=== PATIENT | male | born 2000 | race Two or more races ===

== ENCOUNTER 2018-02-16 19:33 | Emergency (ER) | payer SELFPAY ==
--- NOTE | 2018-02-16 20:30 | EDM.PDOCBH ---
ED HPI GENERAL MEDICAL PROBLEM - General Chief Complaint: Behavioral/Psych Stated Complaint: MENTAL HEALTH EVALUATION Time Seen by Provider: 02/16/18 20:11 Source of Information: Reports: Patient History Limitations: Reports: No Limitations - History of Present Illness INITIAL COMMENTS - FREE TEXT/NARRATIVE: 17-year-old male presents for a mental health evaluation. Patient is very tangential and has thoughts of grandeur, distal to obtain a complete history from him. We've never seen him in the ER before. Patient reports that he is from [place]. He came to [place] for work. He has been staying with his brother. Apparently there was some argument between him and his brother kaushal. The police were called and instructed him to come to the ED for a psychiatric evaluation. Apparently the please brought him to the ER, but they do not enter with them. Patient reports that he uses marijuana. No alcohol. No other drugs. Patient has paranoid thoughts. He states that he feels his family is out to get him. He also reports that he feels that he's been troubled by his family. He denies any suicidal thoughts or plan. He denies any homicidal thoughts or plan. He talks extensively about getting a monthly stipend from someone due to trauma with his . He states that the money has caused significant problems in his family. He feels that the way he carries himself causes problems with his family. He states that his family and his brother playing "mind games "with him. He denies any visual hallucinations or auditory hallucinations. He states he has never been diagnosed with any psychiatric illness. He is not on any medications and never has been. This never seen a psychiatrist. No medical concerns. Denies any fevers, chills, nausea or vomiting. - Related Data Allergies Allergy/AdvReac Type Severity Reaction Status Date / Time No Known Allergies Allergy Verified 02/16/18 19:45 Home Meds: Home Meds . [No Known Home Meds] 02/16/18 [History] Past Medical History - Past Health History Medical/Surgical History: Denies Medical/Surgical History Other Psychiatric History: hyperactive Social & Family History - Family History Family Medical History: Noncontributory - Tobacco Use Smoking Status *Q: Former Smoker Used Tobacco, but Quit: No - Caffeine Use Caffeine Use: Reports: None - Recreational Drug Use Recreational Drug Use: Yes Recreational Drug Type: Reports: Marijuana/Hashish Recreational Drug Use Frequency: Binges ED ROS GENERAL - Review of Systems Review Of Systems: See Below Constitutional: Denies: Fever, Chills GI/Abdominal: Denies: Nausea, Vomiting Psychiatric: Denies: Anxiety, Depression, Hallucinations, Homicidal Ideation, Suicidal Ideation ED EXAM, BEHAVIORAL HEALTH - Physical Exam Exam: See Below Exam Limited By: No Limitations General Appearance: Alert, WD/WN, No Apparent Distress Respiratory/Chest: No Respiratory Distress, Lungs Clear, Normal Breath Sounds Cardiovascular: Normal Peripheral Pulses, Regular Rate, Rhythm, No Murmur Neurological: Alert, Normal Mood/Affect, Normal Cognition, Normal Gait Psychiatric: Alert, Normal Affect, Normal Cognition, Normal Mood, Tangential Thoughts, Grandiose Thoughts, Paranoid Thoughts. No: Depressed Mood, Flat Affect, Agitated, Non-Communicative, Poor Eye Contact, Homicidal Thoughts, Suicidal Plan, Suicidal Thoughts, Auditory Hallucinations, Visual Hallucinations , Threatening Behavior Skin Exam: Warm, Dry, Normal color COURSE, BEHAVIORAL HEALTH COMP - Course Vital Signs: Last Vital Signs Temp 36.9 C 02/16/18 19:35 Pulse 86 02/16/18 19:35 Resp 18 02/16/18 19:35 BP 132/99 H 02/16/18 19:35 Pulse Ox 97 02/16/18 19:35 Orders, Labs, Meds: Laboratory Tests 02/16/18 Range/Units 19:50 Urine Opiates Screen Negative (NEGATIVE) Ur Buprenorphine Scrn Negative (NEGATIVE) Ur Oxycodone Screen Negative (NEGATIVE) Urine Methadone Screen Negative (NEGATIVE) Ur Propoxyphene Screen Negative (NEGATIVE) Ur Barbiturates Screen Negative (NEGATIVE) Ur Tricyclics Screen Negative (NEGATIVE) Ur Phencyclidine Scrn Negative (NEGATIVE) Ur Amphetamine Screen Negative (NEGATIVE) U Methamphetamines Scrn Negative (NEGATIVE) U Benzodiazepines Scrn Negative (NEGATIVE) U Cocaine Metab Screen Negative (NEGATIVE) U Marijuana (THC) Screen Negative (NEGATIVE) Re-Assessment/Re-Exam: 22:10 Spoke with [facility]. Initially did not feel that he is a candidate for the [facility] bed. I spoke with Netta again. She will come and see the patient to see if he is indeed a candidate for the [facility] bed. Patient is not exhibiting threatening behavior. He was dropped off in the ER by police. However, they did not report any threatening behavior. Unclear exactly how the police can to be involved but there was some altercation between him and his brother. I believe that the patient called the police himself and they instructed him to come to the ER for an evaluation. As far as I am aware he is not under arrest. He has not said anything or done anything to exhibiting any suicidal intention or homicidal intention. He is interested in seeing counselors and going to [facility] as well as [facility]. He is adamant that I do not contact his brother kaushal to see he return to his home. He does not have any place to stay. States he does not have any money. 23:15 Netta from [facility] has come and seen the patient. He denies to her, me and the nurse any thoughts of suicide or any suicidal plan. He denies any homicidal thoughts or plan. He does not have a place to go. We did contact the police department but they no longer offer vouchers for the homeless. Netta has agreed to allow him to go to the [facility] bed where they can have him see counseling, possibly Dr. gamino and homeless management in the morning. Departure - Departure Time of Disposition: 23:05 Disposition: Home, Self-Care 01 Condition: Fair Clinical Impression: Manic behavior - Discharge Information Referrals: PCP,None [Primary Care Provider] - Mary Gamino MD [Ordering Only Provider] - Forms: ED Department Discharge Additional Instructions: Go to the [facility] crisis bed [facility]. In the morning at 8 AM Yovana will do an intake and they will evaluate you and set up with resources. Recommend meeting with psychiatry and counselors for additional help as well as the homeless beverage manager for additional resources. Please return to the ER if your symptoms change or worsen.
== END 2018-02-16 23:13 | disposition home or self-care (01) ==
LOC: JD.ED 19:33
DX: F30.9 Manic episode, unspecified (principal); Z87.891 Personal history of nicotine dependence
CPT/HCPCS: 80306; 99284